=== PATIENT | female | born 1985 | race Caucasian/White ===

== ENCOUNTER → 2016-10-03 | Outpatient (CLI) | payer OTHER ==
--- NOTE | 2016-10-04 09:29 | EEG PRO FEE REPORT ---
EEG INTERPRETATION PATIENT NAME: JOSE M SEPTEMBER ROOM#: ORDER#: [id number] DATE OF STUDY: 10/03/2016 : 1985 REFERRING MD: BRISEYDA ARSHAD M.D. DIAGNOSIS: Seizures REPORT The background activity is well developed alpha of 8-9 Hz medium voltage. No clear focal slowing, amplitude asymmetry, or epileptiform discharges are noted although frequent motion artifact is seen. IMPRESSION Normal EEG INTERPRETING PHYSICIAN: STEPH PARK M.D. /: MTEFFT TT: [id number] ID: [id number] /: [id number] TD: [id number] JOB: [id number] cc:Dawson GUZMAN M.D. >
== END ==
LOC: NEURO 13:00
PROVIDERS: ATTEND Pediatrics
DX: R56.9 Unspecified convulsions (principal)
CPT/HCPCS: 95819

== ENCOUNTER 2017-11-22 09:32 | Emergency (ER) | payer SELFPAY ==
[2017-11-22] MEDS ORDERED: DIPHENHYDRAMINE HCL 50 MG/ML VIAL IV ONE (10:11)
[2017-11-22] MEDS ORDERED: METOCLOPRAMIDE HCL INJ/PF 10 MG/2 ML SDV IV ONE (10:11)
--- NOTE | 2017-11-22 10:13 | ER Document Report ---
ED Medical Screen (RME) - General Chief Complaint: Chest Tightness Stated Complaint: CHEST TIGHTNESS, WEAKNESS Time Seen by Provider: 11/22/17 10:06 Notes: RAPID MEDICAL EVALUATION DISCLOSURE I have seen this patient as part of a Rapid Medical Evaluation and, if applicable, placed any initially appropriate orders. The patient will be seen and fully evaluated, including a full history and physical exam, by a provider ( in Main ED or Fast Track) when a room becomes available. 32-year-old female PMH migraines here with complaints of migraines ongoing for the past week and a half, right sided, nonradiating, constant, worse with light and sound, with nausea and vomiting. Also complains of some midsternal chest pain, ongoing past 3 days, radiating up to the left shoulder and down the left arm, with left arm numbness, worse with exertion and laying flat, denies shortness of breath. EXAM CTAB RRR TRAVEL OUTSIDE OF THE U[place] IN LAST 30 DAYS: No - Related Data Allergies/Adverse Reactions: codeine [Codeine] Allergy (Verified 12/05/14 19:33) Home Medications: motrin, alpraxolam, adderall, zoloft. Past Medical History - Past Medical History Cardiac Medical History: Pulmonary Medical History: Reports: Hx Asthma Neurological Medical History: Reports: Hx Migraine Renal/ Medical History: Reports: Hx Ectopic GI Medical History: Musculoskeltal Medical History: Skin Medical History: Reports Hx MRSA Psychiatric Medical History: Reports: Hx Attention Deficit Hyperactivity Disorder, Hx Depression Infectious Medical History: Past Surgical History: Reports: Hx Abdominal Surgery - for MRSA mass, Hx Oral Surgery - Immunizations Immunizations up to date: Yes Hx Diphtheria, Pertussis, Tetanus Vaccination: No Physical Exam - Vital signs Vitals: Temp Pulse Resp BP Pulse Ox 99.2 F 88 18 145/77 H 98 11/22/17 09:40 11/22/17 09:40 11/22/17 09:40 11/22/17 09:40 11/22/17 09:40 Course - Vital Signs Vital signs: Temp Pulse Resp BP Pulse Ox 99.2 F 88 18 145/77 H 98 11/22/17 09:40 11/22/17 09:40 11/22/17 09:40 11/22/17 09:40 11/22/17 09:40
--- NOTE | 2017-11-22 11:01 | ER Document Report ---
ED General - General Chief Complaint: Chest Tightness Stated Complaint: CHEST TIGHTNESS, WEAKNESS Time Seen by Provider: 11/22/17 10:06 Mode of Arrival: Ambulatory Information source: Patient TRAVEL OUTSIDE OF THE [place] IN LAST 30 DAYS: No - HPI Notes: 32-year-old female with a past medical history of severe anxiety, migraine and ADD presents for evaluation of left-sided chest pain with numbness and tingling for the last 2-3 days. Patient states she started taking Adderall twice a day along with taking Xanax 0.5 mg 3 times daily as needed for management of her ADD. Patient has been taking Xanax this dose for at least a year for the Adderall is new. Patient has also been drinking caffeine while taking Adderall. Patient denies any illicit drug use. Denies fevers, chills, palpitations, shortness of breath, dyspnea, nausea, vomiting, diarrhea, abdominal pain, hematuria,blurred vision, double vision, loss of vision, speech changes, LH, dizziness, syncope, headaches, wheezing, ST, URI, neck pain, weakness, bowel or bladder dysfunction, saddle anesthesia, numbness or tingling in bilateral upper or lower extremities equally, muscle paralysis, weakness in bilateral upper or lower extremities equally or rash. Denies IV drug use. - Related Data Allergies/Adverse Reactions: codeine [Codeine] Allergy (Verified 12/05/14 19:33) Home Medications: motrin, alpraxolam, adderall, zoloft. Past Medical History - General Information source: Patient - Social History Smoking Status: Never Smoker Chew tobacco use (# tins/day): No Frequency of alcohol use: None Drug Abuse: None Family History: Reviewed & Not Pertinent Patient has suicidal ideation: No Patient has homicidal ideation: No - Past Medical History Cardiac Medical History: Pulmonary Medical History: Reports: Hx Asthma Neurological Medical History: Reports: Hx Migraine Renal/ Medical History: Reports: Hx Ectopic . Denies: Hx Peritoneal Dialysis GI Medical History: Musculoskeltal Medical History: Skin Medical History: Reports Hx MRSA Psychiatric Medical History: Reports: Hx Attention Deficit Hyperactivity Disorder, Hx Depression Infectious Medical History: Past Surgical History: Reports: Hx Abdominal Surgery - for MRSA mass, Hx Oral Surgery - Immunizations Immunizations up to date: Yes Hx Diphtheria, Pertussis, Tetanus Vaccination: No Hx Pneumococcal Vaccination: 04/01/11 Review of Systems - Review of Systems Constitutional: No symptoms reported EENT: No symptoms reported Cardiovascular: See HPI Respiratory: No symptoms reported Gastrointestinal: No symptoms reported Genitourinary: No symptoms reported Female Genitourinary: No symptoms reported Musculoskeletal: No symptoms reported Skin: No symptoms reported Hematologic/Lymphatic: No symptoms reported Neurological/Psychological: No symptoms reported Physical Exam - Vital signs Vitals: Temp Pulse Resp BP Pulse Ox 99.2 F 88 18 145/77 H 98 11/22/17 09:40 11/22/17 09:40 11/22/17 09:40 11/22/17 09:40 11/22/17 09:40 - Notes Notes: PHYSICAL EXAMINATION: GENERAL: Well-appearing, well-nourished and in no acute distress. HEAD: Atraumatic, normocephalic. EYES: Pupils equal round and reactive to light, extraocular movements intact, conjunctiva are normal. ENT: Nares patent, oropharynx clear without exudates. Moist mucous membranes. NECK: Normal range of motion, supple without lymphadenopathy LUNGS: Breath sounds clear to auscultation bilaterally and equal. No wheezes rales or rhonchi. HEART: Regular rate and rhythm without murmurs ABDOMEN: Soft, nontender, nondistended abdomen. No guarding, no rebound. No masses appreciated. Female : deferred Musculoskeletal: Normal range of motion, no pitting or edema. No cyanosis. NEUROLOGICAL: Cranial nerves grossly intact. Normal speech, normal gait. Normal sensory, motor exams PSYCH: Normal mood, normal affect. SKIN: Warm, Dry, normal turgor, no rashes or lesions noted. Course - Re-evaluation Re-evalutation: 11/22/17 19:17 CBC negative for leukocytosis or anemia. No renal or hepatic dysfunction. Cardiac enzymes unremarkable, EKG normal. Urinalysis showed glucose,. Discussed with patient that she should not mix caffeine because increased anxiety and symptoms of panic potentially as well as possible arrhythmias. Discussed to cut out any caffeine or stimulants in her diet while she is taking her add meds. If she chooses to drink caffeine, she should not take Advil that day.Presentation of chest pain in an otherwise well appearing patient. Low clinical suspicion for ACS given clinical history, exam, EKG without ST elevations or depressions, and negative initial troponin. This provider is also able to reproduce chest pain that brought patient to the emergency room. HEART score less than 3. PE also seems unlikely given clinical history, absence of tachycardia or dyspnea. Patient is PERC criteria negative. CXR without evidence of pneumothorax or pneumonia. No widened mediastinum. Aortic dissection also seems unlikely given history, symmetric pulses, CXR, and vitals. HEART Score: History takes Adderall ECG no stemi Age 31 Risk Factors none Troponin negative Total: <3 Chest pain in a patient without evidence of cardiac or other serious etiology on workup today. I discussed with patient that, based on their age, risk factors and emergency department testing today, the likelihood that their symptoms are related to a heart attack is very low (estimated risk of heart attack or over the next 30 days of less than 1%). The patient demonstrates decision making capacity and has verbalized an understanding of these risks to me. Based on this, the patient has chosen to follow-up as an outpatient. Usual chest pain return precautions reviewed. The patient states understanding and agreement with this plan. After performing a Medical Screening Examination, I estimate there is LOW risk for RUPTURED ESOPHAGUS, PNEUMOTHORAX, PULMONARY EMBOLISM, ACUTE CORONARY SYNDROME, OR THORACIC AORTIC DISSECTION, thus I consider the discharge disposition reasonable. I have reevaluated this patient multiple times and no significant life threatening changes are noted. The patient and I have discussed the diagnosis and risks, and we agree with discharging home with close follow-up. We also discussed returning to the Emergency Department immediately if new or worsening symptoms occur. We have discussed the symptoms which are most concerning (e.g., bloody sputum, worsening pain or shortness of breath) that necessitate immediate return. - Vital Signs Vital signs: Temp Pulse Resp BP Pulse Ox 99 F 88 15 130/75 H 99 11/22/17 15:04 11/22/17 09:40 11/22/17 14:47 11/22/17 14:47 11/22/17 14:47 - Laboratory Result Diagrams: 11/22/17 10:35 Laboratory results interpreted by me: 11/22/17 11/22/17 10:26 10:35 Seg Neutrophils % 40.0 L Lymphocytes % 50.5 H Ur Leukocyte Esterase TRACE H - EKG Interpretation by Me EKG shows normal: Sinus rhythm Rate: Normal Rhythm: NSR - hr 81, no stemi Discharge - Discharge Clinical Impression: Costochondritis, acute UTI (urinary tract infection) Qualifiers: Urinary tract infection type: acute cystitis Hematuria presence: without hematuria Qualified Code(s): N30.00 - Acute cystitis without hematuria Condition: Good Disposition: HOME, SELF-CARE Instructions: Costochondritis ([facility]), Nitrofurantoin ([facility]), Urinary Tract Infection ([facility]) Additional Instructions: URINARY TRACT INFECTION: Your evaluation indicates that you have a urinary tract infection. This is due to germs growing in the bladder. This is a common problem. This infection usually responds quickly to antibiotics. Your antibiotic should be taken exactly as prescribed. Drink plenty of fluids -- three to four quarts a day. Occasionally, a bladder anesthetic will be prescribed to help stop the feeling of urgency until the antibiotic has a chance to clear the infection. This may cause your urine to be dark orange. Certain urine infections require a culture. If the doctor obtained a culture, the results will be back in two days. You should call to see if a change in treatment is needed. A repeat urinalysis after you finish treatment is often recommended. The physician will let you know if further testing is required. Call the doctor if you develop fever, chills, flank pain, inability to urinate, or blood in the urine. ANTIBIOTIC THERAPY: You have been given an antibiotic prescription. It's important that you take all the medication, unless instructed otherwise by your physician. Failure to complete the entire course can result in relapse of your condition. Common side effects of antibiotics include nausea, intestinal cramping, or diarrhea. Women may develop vaginal yeast infections, and babies can get yeast (thrush) in the mouth following the use of antibiotics. Contact your physician if you develop significant side effects from this medication. Allergy to this antibiotic can result in hives, wheezing, faintness, or itching. If symptoms of allergy occur, stop the medication and call the doctor. NITROFURANTOIN (MACRODANTIN, MACROBID): You have received a prescription for nitrofurantoin (Macrodantin). This antibiotic is used for urinary tract infections. Women who are or nursing should notify the physician before taking this medicine. If you have ever had a problem caused by this medication in the past, be sure the physician is aware of it. Common side effects of this medicine include nausea, vomiting, or decreased appetite. Notify your physician if these side effects become severe. Immediately stop this medicine and call the physician if you develop cough , shortness of breath, chest pain, weakness, jaundice (yellow color of the skin and whites of the eyes), or a skin rash. FOLLOW-UP CARE: If you have been referred to a physician for follow-up care, call the physician s office for an appointment as you were instructed or within the next two days. If you experience worsening or a significant change in your symptoms, notify the physician immediately or return to the Emergency Department at any time for re-evaluation. Return immediately for any new or worsening symptoms. Follow up with primary care provider, call tomorrow to make followup appointment. Prescriptions: Meloxicam 7.5 mg PO DAILY #7 tablet Nitrofurantoin Monohyd/M-Cryst [Macrobid 100 mg Capsule] 1 tab PO BID #20 capsule Forms: Return to Work Referrals: KEON ENRIQUE MD [ACTIVE STAFF] - Follow up as needed
[2017-11-22 11:05] LABS: ABSOLUTE EOSINOPHILS # (AUTO) 0.1 10^3/uL (0.0-0.6); ABSOLUTE LYMPHOCYTES (AUTO) 3.6 10^3/uL (0.5-4.7); ABSOLUTE MONOCYTES (AUTO) 0.6 10^3/uL (0.1-1.4); ABSOLUTE NEUT (AUTO) 2.9 10^3/uL (1.7-8.2); BASOPHILS % (AUTO) 0.4 % (0-2); EOSINOPHILS % (AUTO) 1.3 % (0-6); HEMATOCRIT 36.8 % (36.0-47.0); HEMOGLOBIN 12.5 g/dL (12.0-15.5); LYMPHOCYTES % (AUTO) 50.5 % (13-45); MEAN CORPUSCULAR HEMOGLOBIN 27.8 pg (27.0-33.4); MEAN CORPUSCULAR HGB CONC 34.1 g/dL (32.0-36.0); MEAN CORPUSCULAR VOLUME 82 fl (80-97); MONOCYTES % (AUTO) 7.8 % (3-13); PLATELET COUNT 256 10^3/uL (150-450); RED CELL DISTRIBUTION WIDTH 13.7 % (11.5-14.0); TOTAL CELLS COUNTED % (AUTO) 100 %; WHITE BLOOD COUNT 7.2 10^3/uL (4.0-10.5)
[2017-11-22] MEDS ORDERED: NORMAL SALINE 1000 ML 1,000 ML IV PRN (11:37)
[2017-11-22 12:11] LABS: APPEARANCE,URINE CLEAR; BILIRUBIN,URINE NEGATIVE (NEGATIVE); COLOR,URINE YELLOW; GLUCOSE, URINE NEGATIVE (NEGATIVE); KETONES,URINE NEGATIVE (NEGATIVE); LEUKOCYTE ESTERASE,URINE TRACE (NEGATIVE); NITRITE,URINE NEGATIVE (NEGATIVE); PROTEIN,URINE NEGATIVE (NEGATIVE); URINE SPECIFIC GRAVITY 1.021; UROBILINOGEN,URINE NEGATIVE mg/dL (<2.0)
--- NOTE | 2017-11-22 12:19 | RADIOLOGY REPORT (SQ) ---
EXAM DESCRIPTION: CHEST SINGLE VIEW COMPLETED DATE/TIME: 11/22/2017 12:11 pm REASON FOR STUDY: CP COMPARISON: 01/26/2016 EXAM PARAMETERS: NUMBER OF VIEWS: One view. TECHNIQUE: Single frontal radiographic view of the chest acquired. RADIATION DOSE: NA LIMITATIONS: None. FINDINGS: LUNGS AND PLEURA: No opacities, masses or pneumothorax. No pleural effusion. MEDIASTINUM AND HILAR STRUCTURES: No masses. Contour normal. HEART AND VASCULAR STRUCTURES: Heart normal in size. Normal vasculature. BONES: No acute findings. HARDWARE: None in the chest. OTHER: No other significant finding. IMPRESSION: NO ACUTE RADIOGRAPHIC FINDING IN THE CHEST. TECHNICAL DOCUMENTATION: JOB ID: [id number] [employer]- All Rights Reserved Reading location - IP/workstation name: [email or web address]
[2017-11-22 12:26] LABS: URINE AMPHETAMINES SCREEN NEGATIVE; URINE BARBITURATES SCREEN NEGATIVE; URINE BENZODIAZEPINES SCREEN UNCONFIRMED POSITIVE; URINE COCAINE SCREEN NEGATIVE; URINE MARIJUANA (THC) SCREEN NEGATIVE; URINE METHADONE SCREEN NEGATIVE; URINE PHENCYCLIDINE SCREEN NEGATIVE
--- NOTE | 2017-11-22 13:43 | EKG REPORT ---
SEVERITY:- NORMAL ECG - SINUS RHYTHM : Confirmed by: Nas Baldwin MD 22-Nov-2017 13:41:29
[2017-11-22 14:49] VITALS: BP 130/75
== END 2017-11-22 15:05 | disposition home or self-care (01) ==
LOC: ER 09:32
DX: M94.0 Chondrocostal junction syndrome [Tietze] (principal); N30.00 Acute cystitis without hematuria; F41.9 Anxiety disorder, unspecified; R07.89 Other chest pain; F90.9 Attention-deficit hyperactivity disorder, unspecified type; R20.0 Anesthesia of skin; R20.2 Paresthesia of skin; J45.909 Unspecified asthma, uncomplicated; F32.9 Major depressive disorder, single episode, unspecified; Z79.899 Other long term (current) drug therapy; Z88.5 Allergy status to narcotic agent; Z79.1 Long term (current) use of non-steroidal anti-inflammatories (NSAID)
CPT/HCPCS: 93005; 99285; 96361; 96374; 96375; 36415; 87040; 87086; 82553; 82550; 85025; 81025; 81001; 84484; 80307; 71045; 93010; J1200; J2765; J7030

== ENCOUNTER → 2020-06-04 | Outpatient (CLI) | payer SELFPAY ==
[2020-06-04 12:43] LABS: A TYPE INFLUENZA AG NEGATIVE (NEGATIVE); B INFLUENZA AG NEGATIVE (NEGATIVE)
--- NOTE | 2020-06-04 13:38 | ER RDC ASSESSMENT REPORT ---
Intake - In the Last 14 days Have you traveled outside [place]?: No Have you been in close contact with someone CONFIRMED: No Worked in Healthcare?: No - Symptoms Subjective Fever([place] feverish): Yes Chills: No Muscule Aches: Yes Runny Nose: Yes Sore Throat: No Cough (New or worsening chronic cough): No Shortness of breath: No Nausea or Vomiting: No Headache: Yes Abdominal Pain: No Diarrhea(3 or more loose stools in last 24 hours): No - Do you have any of the following Chronic lung disease: Asthma or emphysema or COPD: No Cystic Fibrosis: No Diabetes: No High Blood Pressure: No Cardiovascular Disease: No Chronic Kidney Disease: No Chronic Liver Disease: No Chronic blood disorder like Sickle Cell Disease: No Weak immune system due to disease or medication: No Neurologic condition that limits movement: No Developmental delay - Moderate to Severe: No Recent (within past 2 weeks) or current : No Morbid Obesity (>100 pounds over ideal weight): No - Objective Temperature: 98.8 F Pulse Rate: 79 Respiratory Rate: 16 Blood Pressure: 122/84 O2 Sat by Pulse Oximetry: 96 Objective: Given above, testing performed: flu, covid Disposition: Home; Selfcare General - General Stated Complaint: Flulike symptoms Mode of Arrival: Ambulatory Information source: Patient - HPI Notes: 35-year-old female presents to [facility] clinic for COVID-19 testing. Patient reports no known contact with Covid positive individual. Onset of symptoms 05/31/2020. Patient is reporting loss of appetite, loss of taste, fatigue, subjective fever, nasal drainage, headache, and muscle aches. Denies chills, sore throat, cough, shortness of breath, nausea or vomiting, abdominal pain or diarrhea. - Related Data Allergies/Adverse Reactions: codeine [Codeine] Allergy (Verified 12/05/14 19:33) Past Medical History - General Information source: Patient - Social History Smoking Status: Never Smoker Family History: Reviewed & Not Pertinent - Past Medical History Cardiac Medical History: Reports: None Denies: Hx Coronary Artery Disease, Hx Heart Attack, Hx Hypertension Pulmonary Medical History: Reports: Hx Asthma Denies: Hx Bronchitis, Hx COPD, Hx Pneumonia EENT Medical History: Reports: None Neurological Medical History: Reports: Hx Migraine. Denies: Hx Cerebrovascular Accident, Hx Seizures Endocrine Medical History: Reports: None Renal/ Medical History: Reports: Hx Ectopic . Denies: Hx Peritoneal Dialysis Malignancy Medical History: Reports: None GI Medical History: Reports: None Musculoskeletal Medical History: Reports None, Denies Hx Arthritis Skin Medical History: Reports Hx MRSA Psychiatric Medical History: Reports: Hx Anxiety, Hx Attention Deficit Hyperactivity Disorder, Hx Depression Traumatic Medical History: Reports: None Infectious Medical History: Reports: Hx MRSA Past Surgical History: Reports: Hx Abdominal Surgery - for MRSA mass, Hx Hysterectomy, Hx Oral Surgery. Denies: Hx Pacemaker Physical Exam - General General appearance: Appears well, Alert In distress: None Notes: PHYSICAL EXAMINATION: GENERAL: Well-appearing and in no acute distress. HEAD: Atraumatic, normocephalic. EYES: sclera anicteric, conjunctiva are normal. ENT: nares patent. Moist mucous membranes. NECK: Normal range of motion, supple without lymphadenopathy. LUNGS: No increased work of breathing. Lung sounds CTAB and equal. No wheezes rales or rhonchi. HEART: Regular rate and rhythm without murmurs. ABDOMEN: Soft, nontender, normal bowel sounds, no guarding. EXTREMITIES: Normal range of motion, no pitting edema. No cyanosis. NEUROLOGICAL: A&O x 3. Normal speech. PSYCH: Normal mood, normal affect. SKIN: Warm, Dry, normal turgor, no rashes or lesions noted Diagnostic Results Laboratory Results: Influenza A (Rapid) NEGATIVE (NEGATIVE) 06/04/20 11:43 Influenza B (Rapid) NEGATIVE (NEGATIVE) 06/04/20 11:43 Patient Education/Counseling Counseling/Education: Patient presents with symptoms associated with possible Covid 19 infection. Patient does not have emergency worrying symptoms such as difficulty breathing, shortness of breath, chest pain, pressure, confusion or cyanosis. Patient appears suitable for discharge as vital signs are stable and patient is nontoxic in appearance. Good return precautions have been discussed with patient, patient verbalized understanding and is agreeable with discharge plan of care at this time. Guidance for worsening S/SX: As a person under investigation for Covid 19, the [facility] Health and Human Services, division of public health advises you to adhere to the following guidance until your test results are reported to you. If your test result is positive, you will receive additional information from your provider and your local health department at that time. Remain at home until you are cleared by the health provider or public health authorities. Keep a log of visitors to your home, notify any visitors to your home of your isolation status. If you plan to move to a new address or leave the county, notify the local health department in your County. Call your doctor or seek care if you have an urgent medical need. Before seeking medical care, call ahead to get instructions from the provider before arriving at the medical office clinic or hospital. Notify them that you are being tested for the virus that causes Covid 19 so that arrangements can be made, as necessary, to prevent transmission to others in the healthcare setting. Next, notify the local health department in your county. If a medical emergency arises and you need to call 911, inform the first responders that you are being tested for the virus that causes Covid 19. Next, notify the local health department in your county. RDC Discharge - Discharge Clinical Impression: Encounter for screening laboratory testing for COVID-19 virus Condition: Good Disposition: Home; Selfcare
[2020-06-04 13:39] VITALS: BP 122/84
== END ==
LOC: RDC 11:19
PROVIDERS: ATTEND Registered Nurse
DX: U07.1 COVID-19 (principal); R50.9 Fever, unspecified; R09.89 Other specified symptoms and signs involving the circulatory and respiratory systems; M79.10 Myalgia, unspecified site; R51.9 Headache, unspecified; J45.909 Unspecified asthma, uncomplicated; F90.2 Attention-deficit hyperactivity disorder, combined type; F41.9 Anxiety disorder, unspecified; Z86.14 Personal history of Methicillin resistant Staphylococcus aureus infection
CPT/HCPCS: 87635; 87804; C9803; 99201; 99211

== ENCOUNTER 2020-07-08 16:12 | Emergency (ER) | payer SELFPAY ==
--- NOTE | 2020-07-08 18:09 | ER Document Report ---
ED Medical Screen (RME) - General Chief Complaint: Rectal Bleeding Stated Complaint: RECTAL BLEEDING, BACK PAIN, ABDOMINAL PAIN Time Seen by Provider: 07/08/20 18:00 Mode of Arrival: Ambulatory Information source: Patient Notes: HPI; 35-year-old female presents to the emergency room complaining of intermittent low cramping sharp abdominal pain with rectal bleeding for the past 10 days. History of hemorrhoids but does not feel that it is hemorrhoid related. States she has noticed bright red blood streaking through her bowel movements and clots when she wipes. States abdominal pain is worse when she tries to have a bowel movement states her bowels have not been hard or painful. Has taken aspirin with minimal relief. No nausea, no vomiting. But does complain of a decreased appetite. PE: Alert and oriented x3. Lungs: Clear to auscultation without rales, rhonchi, wheezes. Heart: Regular rate rhythm without murmurs, rubs, gallops. I have greeted and performed a rapid initial assessment of this patient. A comprehensive ED assessment and evaluation of the patient, analysis of test results and completion of the medical decision making process will be conducted by additional ED providers. I have specifically instructed the patient or family members with the patient to immediately return to any nursing staff should anything change in the patient's condition or with their chief complaint. TRAVEL OUTSIDE OF THE [place] IN LAST 30 DAYS: No - Related Data Allergies/Adverse Reactions: codeine [Codeine] Allergy (Verified 07/08/20 17:59) Home Medications: quetiapine. sertaline. alprazolam Past Medical History - Past Medical History Cardiac Medical History: Denies: Hx Coronary Artery Disease, Hx Heart Attack, Hx Hypertension Pulmonary Medical History: Reports: Hx Asthma Denies: Hx Bronchitis, Hx COPD, Hx Pneumonia Neurological Medical History: Reports: Hx Migraine. Denies: Hx Cerebrovascular Accident, Hx Seizures Renal/ Medical History: Reports: Hx Ectopic . Denies: Hx Peritoneal Dialysis GI Medical History: Musculoskeltal Medical History: Denies Hx Arthritis Skin Medical History: Reports Hx MRSA Psychiatric Medical History: Reports: Hx Anxiety, Hx Attention Deficit Hyperactivity Disorder, Hx Depression Infectious Medical History: Reports: Hx MRSA Past Surgical History: Reports: Hx Abdominal Surgery - for MRSA mass, Hx Hysterectomy, Hx Oral Surgery. Denies: Hx Pacemaker - Immunizations Immunizations up to date: Yes Hx Diphtheria, Pertussis, Tetanus Vaccination: No Physical Exam - Vital signs Vitals: Temp Pulse Resp BP Pulse Ox 97.5 F 75 16 145/93 H 98 07/08/20 18:00 07/08/20 18:00 07/08/20 18:00 07/08/20 18:00 07/08/20 18:00 Course - Vital Signs Vital signs: Temp Pulse Resp BP Pulse Ox 97.5 F 75 16 145/93 H 98 07/08/20 18:00 07/08/20 18:00 07/08/20 18:00 07/08/20 18:00 07/08/20 18:00
[2020-07-08 18:41] LABS: ABSOLUTE BASOPHILS # (AUTO) 0.1 10^3/uL (0.0-0.2); ABSOLUTE EOSINOPHILS # (AUTO) 0.3 10^3/uL (0.0-0.6); ABSOLUTE LYMPHOCYTES (AUTO) 3.8 10^3/uL (0.5-4.7); ABSOLUTE MONOCYTES (AUTO) 0.7 10^3/uL (0.1-1.4); ABSOLUTE NEUT (AUTO) 7.7 10^3/uL (1.7-8.2); BASOPHILS % (AUTO) 0.5 % (0-2); EOSINOPHILS % (AUTO) 2.2 % (0-6); HEMOGLOBIN 13.6 g/dL (12.0-15.5); LYMPHOCYTES % (AUTO) 30.2 % (13-45); MEAN CORPUSCULAR HEMOGLOBIN 27.8 pg (27.0-33.4); MEAN CORPUSCULAR HGB CONC 34.1 g/dL (32.0-36.0); MEAN CORPUSCULAR VOLUME 82 fl (80-97); MONOCYTES % (AUTO) 5.6 % (3-13); PLATELET COUNT 296 10^3/uL (150-450); RED BLOOD COUNT 4.91 10^6/uL (3.72-5.28); RED CELL DISTRIBUTION WIDTH 13.9 % (11.5-14.0); SEGMENTED NEUTROPHILS % (AUTO) 61.5 % (42-78); TOTAL CELLS COUNTED % (AUTO) 100 %; WHITE BLOOD COUNT 12.5 10^3/uL (4.0-10.5)
[2020-07-08 19:01] LABS: ALBUMIN 4.8 g/dL (3.5-5.0); ALKALINE PHOSPHATASE 74 U/L (38-126); ANION GAP 11 (5-19); APPEARANCE,URINE CLEAR; ASPARTATE AMINO TRANSFERASE 20 U/L (14-36); BILIRUBIN,DIRECT 0.2 mg/dL (0.0-0.4); BILIRUBIN,TOTAL 0.3 mg/dL (0.2-1.3); BILIRUBIN,URINE NEGATIVE (NEGATIVE); BLOOD UREA NITROGEN 14 mg/dL (7-20); CARBON DIOXIDE 23 mmol/L (22-30); CHLORIDE 108 mmol/L (98-107); COLOR,URINE YELLOW; GLUCOSE 91 mg/dL (75-110); GLUCOSE, URINE NEGATIVE (NEGATIVE); KETONES,URINE NEGATIVE (NEGATIVE); LEUKOCYTE ESTERASE,URINE NEGATIVE (NEGATIVE); NITRITE,URINE NEGATIVE (NEGATIVE); POTASSIUM 4.8 mmol/L (3.6-5.0); PROTEIN,URINE NEGATIVE (NEGATIVE); UROBILINOGEN,URINE NEGATIVE mg/dL (<2.0)
[2020-07-08] MEDS ORDERED: NORMAL SALINE 1000 ML 1,000 ML IV ONE (23:52)
[2020-07-08] MEDS ORDERED: KETOROLAC TROMETHAMINE INJ/PF 30 MG/1 ML SDV IV ONE (23:52)
--- NOTE | 2020-07-09 01:21 | RADIOLOGY REPORT (SQ) ---
CLINICAL HISTORY: bloody stool, lower abdominal cramping. HCG NEG COMPARISON: None. TECHNIQUE: CT ABDOMEN PELVIS WITHOUT IV CONTRAST on 07/08/2020 11:45 PM COMMAND AND CONTROL This exam was performed according to our departmental dose-optimization program, which includes automated exposure control, adjustment of the mA and/or kV according to patient size and/or use of iterative reconstruction technique. FINDINGS: Lower lungs are clear. Abdomen: Liver is enlarged and fatty in attenuation. There is no biliary dilatation. Gallbladder is decompressed. The pancreas and spleen are normal in appearance. The adrenal glands and kidneys are unremarkable. Abdominal aorta is normal in course and caliber without aneurysm. There is no free air. There is no retroperitoneal adenopathy. Pelvis: There is no bowel obstruction. Urinary bladder is unremarkable. There is no free fluid. Uterus is normal in size. Appendix is normal. Skeleton: There are no acute osseous findings. No suspicious bony lesions. IMPRESSION: No acute process.
--- NOTE | 2020-07-09 01:35 | ER Document Report ---
ED GI Bleed / Rectal Pain - General Chief Complaint: Rectal Bleeding Stated Complaint: RECTAL BLEEDING, BACK PAIN, ABDOMINAL PAIN Time Seen by Provider: 07/08/20 18:00 Primary Care Provider: MERVIN SIGALA MD [ACTIVE STAFF] - Follow up in 3-5 days Mode of Arrival: Ambulatory TRAVEL OUTSIDE OF THE [place] IN LAST 30 DAYS: No - HPI Notes: Patient is a 35-year-old female with a past medical history of anxiety who presents with rectal bleeding. Symptoms have been ongoing for the past week and a half. She describes occasional lower abdominal cramping. She states she has bright red blood in the stool and in the toilet. She has about 2 bowel movements a day. She denies any urinary symptoms. No chest pain or shortness of breath. She states that she became lightheaded today. She has also been fatigued. She went to [facility] and was referred to the ED. Patient has a history of an ectopic surgery otherwise no abdominal surgeries. - Related Data Allergies/Adverse Reactions: codeine [Codeine] Allergy (Verified 07/08/20 17:59) Home Medications: quetiapine. sertaline. alprazolam Past Medical History - General Information source: Patient - Social History Smoking Status: Never Smoker Family History: Reviewed & Not Pertinent - Past Medical History Cardiac Medical History: Denies: Hx Coronary Artery Disease, Hx Heart Attack, Hx Hypertension Pulmonary Medical History: Reports: Hx Asthma Denies: Hx Bronchitis, Hx COPD, Hx Pneumonia Neurological Medical History: Reports: Hx Migraine. Denies: Hx Cerebrovascular Accident, Hx Seizures Renal/ Medical History: Reports: Hx Ectopic . Denies: Hx Peritoneal Dialysis GI Medical History: Musculoskeletal Medical History: Denies Hx Arthritis Skin Medical History: Reports Hx MRSA Psychiatric Medical History: Reports: Hx Anxiety, Hx Attention Deficit Hyperactivity Disorder, Hx Depression Infectious Medical History: Reports: Hx MRSA Past Surgical History: Reports: Hx Abdominal Surgery - for MRSA mass, Hx Hysterectomy, Hx Oral Surgery. Denies: Hx Pacemaker - Immunizations Immunizations up to date: Yes Hx Diphtheria, Pertussis, Tetanus Vaccination: No Hx Pneumococcal Vaccination: 04/01/11 Review of Systems - Review of Systems Notes: CONSTITUTIONAL: No fever, fatigue or weight loss. SKIN: No rash. HENT: No congestion, ear pain, or sore throat. CARDIOVASCULAR: No chest pain or edema. RESPIRATORY: No cough, shortness of breath, congestion, or wheezing. GASTROINTESTINAL: Positive for lower abdominal cramping. Positive for bloody stools. GENITOURINARY: No dysuria. MUSCULOSKELETAL: No joint pain or swelling. NEUROLOGIC: No seizures. No headache, focal weakness or sensory changes. HEMATOLOGIC: Positive for rectal bleeding. PSYCHIATRIC: No depression or anxiety. Physical Exam - Vital signs Vitals: Temp Pulse Resp BP Pulse Ox 97.5 F 75 16 145/93 H 98 07/08/20 18:00 07/08/20 18:00 07/08/20 18:00 07/08/20 18:00 07/08/20 18:00 - General General appearance: Appears well In distress: None Notes: VITAL SIGNS: Within normal limits. GENERAL: No acute distress, non-toxic appearance. HEAD: Normal with no signs of head trauma. EYES: Conjunctiva normal, no discharge. EARS: Hearing grossly intact. NECK: Normal range of motion, no tenderness, supple, no lymphadenopathy, No adenopathy, no JVD. CHEST: Clear breath sounds bilaterally. No wheezes, rales, or rhonchi. CARDIAC: Regular rate and rhythm. S1 and S2, without murmurs, gallops, or rubs. VASCULAR: No Edema. Peripheral pulses normal and equal in all extremities. ABDOMEN: Normal and soft with no tenderness, no masses or pulsatile masses. GENITOURINARY: Normal, No tenderness. Rectal exam performed with female cartridge feeder. Hemorrhoid present that is not thrombosed. No visible rectal b leeding. Hemoccult was performed but adequate stool sample was not able to be obtained. Hemoccult was therefore negative. MUSCULOSKELETAL: Good range of motion of all major joints. Extremities without clubbing, cyanosis or edema. NEUROLOGICAL: Alert and oriented x 3. No focal sensory or strength deficits. Speech normal. Follows commands appropriately. PSYCHIATRIC: Normal Affect, judgement and mood. SKIN: Normal appearance with no rashes or lesions. Course - Re-evaluation Re-evalutation: 07/09/20 01:48 CAT scan was obtained as patient was having rectal bleeding with abdominal pain to look for diverticulitis or colitis. This was negative. Her lab work is nondiagnostic. Her hemoglobin is normal. I did a rectal exam with a female cartridge feeder which showed a small hemorrhoid that was not thrombosed. She had no a ctive rectal bleeding. Patient was referred to GI. She was told to follow-up with them and make an appointment this week. I gave her strict return precautions including continuing of GI bleed, lightheadedness, any other concerning symptoms. Patient is very agreeable to the plan. - Vital Signs Vital signs: Temp Pulse Resp BP Pulse Ox 97.5 F 75 16 145/93 H 98 07/08/20 18:00 07/08/20 18:00 07/08/20 18:00 07/08/20 18:00 07/08/20 18:00 - Laboratory Results Result Diagrams: 07/08/20 18:15 07/08/20 18:15 Laboratory Results Interpreted: 07/08/20 07/08/20 07/08/20 18:15 18:15 18:15 WBC 12.5 H Chloride 108 H Urine Blood MODERATE H Critical Laboratory Results Reviewed: No Critical Results - Radiology Results Critical Radiology Results Reviewed: No Critical Results Discharge - Discharge Clinical Impression: GI bleed Qualifiers: GI bleed type/associated pathology: unspecified gastrointestinal hemorrhage type Qualified Code(s): K92.2 - Gastrointestinal hemorrhage, unspecified Abdominal pain Qualifiers: Abdominal location: generalized Qualified Code(s): R10.84 - Generalized abdominal pain Condition: Stable Disposition: HOME, SELF-CARE Instructions: Abdominal Pain ([facility]), Rectal Bleeding, Unclear Cause ([facility]) Additional Instructions: Your work-up today is reassuring. I will give you the number to follow-up with GI. Please make sure you are staying hydrated. Please return the ER for any worsening symptoms, lightheadedness, chest pain, any other change in signs. Referrals: MERVIN SIGALA MD [ACTIVE STAFF] - Follow up in 3-5 days
[2020-07-09 02:16] VITALS: BP 137/84
== END 2020-07-09 02:15 | disposition home or self-care (01) ==
LOC: ER 16:12
DX: K92.2 Gastrointestinal hemorrhage, unspecified (principal); R10.84 Generalized abdominal pain; Z86.14 Personal history of Methicillin resistant Staphylococcus aureus infection; Z88.6 Allergy status to analgesic agent
CPT/HCPCS: 99285; 96361; 96374; 36415; 84703; 85025; 82270; 80053; 81001; 74176; J1885; J7030